=== PATIENT | female | born 2000 | race Caucasian/White ===

== ENCOUNTER 2023-03-05 21:46 | Emergency (ER) | payer BC, MEDICAID ==
[2023-03-05] MEDS ORDERED: methylPREDNISolone Sodium Succinate 125 MG/2 ML SDV IM ONE (22:32)
== END 2023-03-05 22:42 | disposition home or self-care (01) ==
LOC: LB.ED 21:46
DX: L25.8 Unspecified contact dermatitis due to other agents (principal); Z77.22 Contact with and (suspected) exposure to environmental tobacco smoke (acute) (chronic)
CPT/HCPCS: 96372; 99282; J2930

== ENCOUNTER 2023-10-31 20:38 | Emergency (ER) | payer MEDICAID ==
[2023-10-31 21:09] VITALS: BP 150/94; PULSE 92
[2023-10-31] MEDS ORDERED: Ketorolac 60 MG/2 ML SDV IM SCH (21:30)
[2023-10-31] MEDS ORDERED: Silver Sulfadiazine 1% Crm 50 GM Tube TOP SCH (21:30)
[2023-10-31] MEDS ORDERED: traMADol 50 MG Tab ONE (21:45)
== END 2023-10-31 21:58 | disposition home or self-care (01) ==
LOC: LB.ED 20:38
DX: T23.252A Burn of second degree of left palm, initial encounter (principal); T31.0 Burns involving less than 10% of body surface; X10.2XXA Contact with fats and cooking oils, initial encounter
CPT/HCPCS: 16020; 96372; 99283-25; A9270-GY; J1885